=== PATIENT | male | born 1965 | race Caucasian/White ===

== ENCOUNTER → 2017-01-25 | Outpatient (CLI) | payer MEDICAID ==
[2017-01-25 11:16] LABS: ALT 31 U/L (21-72); AST 27 U/L (17-59); Alkaline Phosphatase 89 U/L (38-126); Amylase 67 U/L (30-110); Anion Gap 11 mmol/L; Blood Urea Nitrogen 11 mg/dL (9-20); Calcium 9.6 mg/dL (8.4-10.2); Carbon Dioxide 27 mmol/L (22-30); Chloride 102 mmol/L (98-107); Glucose 123 mg/dL (74-99); Non-African American GFR(MDRD) >60 (>60 ml/min/1.73 sqM); Potassium 4.4 mmol/L (3.5-5.1); Sodium 140 mmol/L (137-145); Total Bilirubin 0.8 mg/dL (0.2-1.3); Total Protein 7.9 g/dL (6.3-8.2)
--- NOTE | 2017-01-25 12:37 | CT ---
EXAMINATION TYPE: CT abdomen pelvis w con DATE OF EXAM: 01/25/2017 COMPARISON: 01/07/2014 HISTORY: Patient complains of RUQ pain. CT DLP: 655 mGycm Automated exposure control for dose reduction was used. CONTRAST: CT scan of the abdomen pelvis is performed with IV Contrast, patient injected with 100 mL of Omnipaqu e 300. FINDINGS- LUNG BASES-subsegmental changes involving both lung bases greater on the right. LIVER/GB-tiny gallstone noted. PANCREAS- No gross abnormality is seen. SPLEEN- No gross abnormality is seen. ADRENALS- No gross abnormality is seen. KIDNEYS/BLADDER-there are 2 less than 5 mm renal calculi within each kidney but no hydronephrosis hyp odense lesions within the kidney are too small to characterize bilaterally but likely related to simp le cysts. BOWEL- no bowel dilatation. Small hiatal hernia. Extensive retained fecal debris within the right co michelle. Left colon is somewhat decompressed and limited in assessment. No obvious inflammatory changes. Left colon does take a superior course. Mild wall thickening may be related to incomplete distention rather than colitis correlate clinically. LYMPH NODES- No greater than 1cm abdominal or pelvic lymph nodes areappreciated. OSSEOUS STRUCTURES-hypertrophic and degenerative change spine grade 1 anterolisthesis L5 on S1 with b ilateral spondylolysis.. OTHER- aorta of normal caliber. IMPRESSION- 1. Mild wall thickening left colon without evidence of significant inflammatory changes may be second stephany to incomplete distention rather than mild colitis. Correlate clinically. 2. Bilateral nonobstructing less than 5 mm renal calculi. 3. Cholelithiasis without evidence of pericholecystic fluid gallbladder is mildly distended correlate clinically.
[2017-01-25 13:52] LABS: Basophils % (A) 0 %; CH 31.1; CHCM 34.3; Eosinophils % (A) 0 %; HCT 47.1 % (39.0-53.0); HDW 2.68; Luc # (Auto) 0.12; Luc % (Auto) 1; Lymphocytes # (A) 1.2 k/uL (1.0-4.8); Lymphocytes % (A) 13 %; MCV 91.1 fL (80.0-100.0); Mean Platelet Volume 8.3; Monocytes # (A) 0.5 k/uL (0-1.0); Monocytes % (A) 5 %; Neutrophils % (A) 81 %; RBC 5.17 m/uL (4.30-5.90); RDW 12.8 % (11.5-15.5); WBC 9.9 k/uL (3.8-10.6); WBC (Perox) 9.65
== END | disposition home or self-care (01) ==
LOC: RADCTMAIN 10:29
PROVIDERS: ATTEND Internal Medicine
DX: N20.0 Calculus of kidney (principal); K80.20 Calculus of gallbladder without cholecystitis without obstruction; K63.89 Other specified diseases of intestine; Z79.899 Other long term (current) drug therapy
CPT/HCPCS: 80053; 82150; 83690; 85025; 74177; 36415; Q9967